=== PATIENT | female | born 2000 | race Caucasian/White ===

== ENCOUNTER 2023-05-31 19:58 | Emergency (ER) | payer BC, SELFPAY ==
--- NOTE | ~2023-05-31 | XR_ITS ---
EXAMINATION: XR chest 2V Exam Date/Time: 05/31/2023 22:30 [employer]ER HISTORY: CP;[id number];VOMITED 6 TIMES THIS EVENING Comparison: None. RESULT: Lines, tubes, and devices: None. Lungs and pleura: Clear. Cardiomediastinal silhouette: Normal. Other: No acute osseous or upper abdominal finding. IMPRESSION: No acute cardiopulmonary process. Reviewed, dictated and finalized at location K. [employer]ANGER
--- NOTE | ~2023-05-31 | CT_ITS ---
EXAMINATION: CT abdomen pelvis w con DATE: 05/31/2023 22:47 INDICATION: RLQ pain TECHNIQUE: Computed tomography (CT) of the abdomen and pelvis was performed with 100 mL Omnipaque-350 intravenous contrast. Automated exposure control and iterative reconstruction technique were employe d. The dose-length product was 375.51 mGy-cm. COMPARISON: None. FINDINGS: Lower thorax: Unremarkable Liver: Normal. Biliary/Gallbladder: Gallbladder is normal. No bile duct dilation. Pancreas: No mass or duct dilation. Spleen: Normal. Adrenals:No mass. Kidneys: No suspicious mass, obstructing stone, or hydronephrosis. GI tract: Mild distal esophageal and gastric wall edema. No small or large bowel dilation. Normal aminata endix. Mesentery/Peritoneum: No ascites, mass, or free air. Retroperitoneum: No mass. Pelvis: Mild bladder wall thickening in a partially distended urinary bladder. Normal uterus and ovar ies. Soft Tissues: Soft tissues and body wall unremarkable. Bones: No acute osseous finding. IMPRESSION: Mild esophagitis/gastritis. Cystitis versus bladder wall thickening from incomplete distention, correlate with urinalysis. Reviewed, dictated and finalized at location K. [employer] IMPRESSION: Mild esophagitis/gastritis. Cystitis versus bladder wall thickening from incomplete distention, correlate w ith urinalysis.
[2023-05-31 20:07] VITALS: BP 115/76; PULSE 101; RESP 16; TEMP 36.4; O2SAT 99
[2023-05-31 20:27] LABS: Basophils Percent Auto 0.3 % (0.2-1.2); Eosinophils Percent Auto 0.1 % (0-4.4); Hematocrit 47.1 % (37.0-47.0); Hemoglobin 15.7 g/dL (12.0-15.0); Immature Granulocyte Absolute 0.02 K/mm3 (0.00-0.031); Immature Granulocyte Percent A 0.2 % (0-0.5); Lymphocytes Absolute Auto 0.63 K/mm3 (0.9-3.2); Lymphocytes Percent Auto 5.3 % (18.3-44.2); Mean Corpuscular HGB Conc 33.3 g/dl (32-36); Mean Corpuscular Hemoglobin 31.7 pg (26-34); Mean Platelet Volume 10.9 fl (7.4-10.4); Monocytes Absolute Auto 0.7 K/mm3 (0.1-0.6); Monocytes Percent Auto 5.8 % (2.6-8.5); Neutrophils Absolute Auto 10.4 K/mm3 (1.3-6.7); Neutrophils Percent Auto 88.3 % (45.5-73.1); Platelet Count Result 255 k/mm3 (150-375); Red Blood Count 4.96 M/mm3 (4.2-5.4); Red Cell Distribution Width 11.8 % (11.5-14.5); White Blood Count 11.8 K/mm3 (4.5-10.0)
[2023-05-31 20:39] LABS: Alanine Aminotransferase 27 U/L (6-35); Albumin Level 4.2 g/dL (3.5-5.1); Alkaline Phosphatase 71 U/L (38-126); Anion Gap 13 mmol/L (8-16); Aspartate Amino Transferase 31 U/L (14-36); Bilirubin,Total 0.9 mg/dL (0.2-1.3); Blood Urea Nitrogen 14 mg/dL (7-17); Carbon Dioxide 17 mmol/L (22-30); Chloride 107 mmol/L (98-107); Estimated CRCL calculation 127 ml/min; Estimated Glomerular Filt Rate > 60; Glucose 104 mg/dL (65-110); Lipase 81 U/L (23-300); Potassium 3.7 mmol/L (3.4-5.0); Sodium 137 mmol/L (137-145)
[2023-05-31 21:01] LABS: Appearance Urine Clear (Clear); Bacteria Urine None Seen /hpf; Bilirubin Urine Negative (Negative); Blood Urine Negative (Negative); Color Urine Dark Yellow (Yellow); Glucose Urine UA Negative (Negative); Ketones Urine 3+ mg/dL (Negative); Leukocyte Esterase Ur Negative LEU/UL (Negative); Need Manual Microscopic Reviewed; Nitrate Urine Negative (Negative); Non Pathogenic Casts 0-2; Protein Urine Trace mg/dL (Negative); Specific Grav Ur 1.032 (1.001-1.035); Squamous Epithelial Cell Urine None seen /hpf (Few); WBC Urine 0-5 /hpf; pH Urine 5.5 (5.0-9.0)
[2023-05-31 21:02] LABS: Add Urine Microscopic? YES
[2023-05-31 22:18] VITALS: BP 101/61; PULSE 89; RESP 15; O2SAT 100
[2023-05-31] MEDS: SODIUM CHLORIDE 0.9% IV 1,000 ML 999 ML IV CONT (22:21)
--- NOTE | 2023-05-31 22:26 | ECG_ITS ---
Measurements Intervals [place] Rate: 88 P: 66 VA: 171 QRS: 91 QRSD: 75 T: 48 QT: 377 QTc: 458 Interpretive Statements SINUS RHYTHM RIGHT AXIS DEVIATION BORDERLINE ECG NO PREVIOUS ECG AVAILABLE FOR COMPARISON Electronically Signed On 06-01-2023 6:47:46 [employer] by Boris Currie D.O.
--- NOTE | 2023-05-31 22:26 | ED.ABDPAIN ---
HPI - Abdominal Pain General Chief Complaint: Abdominal Pain Stated Complaint: abd pain Time Seen by Provider: 05/31/23 22:07 Source: patient Mode of arrival: ambulatory Limitations: no limitations History of Present Illness HPI narrative: This is a 23 year old female that presents to the ER for right sided abdominal pain. Ongoing since yesterday. Associated with nausea and vomiting. Report today in her clinicals she started to feel very lightheaded and nauseas, like she was going to pass out. The pain radiated in her chest. Denies fever, shortness of breath, or dysuria. Related Data Allergies Allergy/AdvReac Type Severity Reaction Status Date / Time No Known Allergies Allergy Verified 05/31/23 19:59 Review of Systems Review of Systems: CONSTITUTIONAL: Denies fever CARDIOVASCULAR: Reports chest pain RESPIRATORY: Denies dyspnea. GASTROINTESTINAL: Reports abdominal pain, nausea, vomiting GENITOURINARY: Denies dysuria or hematuria. All systems reviewed & are unremarkable except as noted in HPI and below PMFSH Past Medical History Medical History (Updated 06/01/23 @ 00:34 by Darlene Garner PA-C) History of anxiety Social History Social History (Updated 06/01/23 @ 00:34 by Darlene Garner PA-C) Substance use: never Exam Narrative: GENERAL: Well-appearing, well-nourished, and in no acute distress. HEAD: Normocephalic, atraumatic. EYES: EOMI. CHEST: Clear to auscultation. No respiratory distress. No wheezes rales or rhonchi HEART: Regular rate and rhythm. No murmur heard. Normal peripheral pulses. ABDOMEN: Soft, nondistended, normal active bowel sounds. Mild tenderness to palpation throughout the right side of the abdomen, without guarding EXTREMITIES: Normal range of motion. No edema. SKIN: Warm, dry, no rash. NEURO: No focal deficits. Alert and oriented x3. PSYCH: Normal mood and affect Course Course Emergency Course: Patient updated on her workup and agrees with plan of care Vital Signs Vital signs: Vital Signs Temperature 97.6 F 05/31/23 20:07 Pulse Rate 101 H 05/31/23 20:07 Respiratory Rate 16 05/31/23 20:07 Blood Pressure 115/76 05/31/23 20:07 Pulse Oximetry 99 05/31/23 20:07 Oxygen Delivery Room Air 05/31/23 20:07 Temperature 97.6 F 05/31/23 20:07 Pulse Rate 89 05/31/23 22:18 Respiratory Rate 15 05/31/23 22:18 Blood Pressure 101/61 05/31/23 22:18 Pulse Oximetry 100 05/31/23 22:18 Oxygen Delivery Room Air 05/31/23 20:07 MDM - Abdominal Pain MDM Narrative Medical decision making narrative: Patient presents to the emergency department for abdominal pain, nausea and vomiting. Reporting radiation into her chest. Ongoing since yesterday. She is afebrile and nontoxic appearing. Mildly tachycardic upon arrival, this normalized with IV fluid administration. CBC with mild leukocytosis to 11.8. Also shows hemoconcentration. Metabolic panel without concerning findings. UA without evidence of infection. Does show evidence of dehydration. Chest x-ray without acute cardiopulmonary abnormality. EKG without concerning changes and baseline troponin is negative. test is negative. CT abdomen pelvis shows mild esophagitis/gastritis. Possible cystitis, although patient's urine is not concerning for infection. Patient was updated on her workup and agrees with plan of care. Will be started on Pepcid and instructed to follow up with primary provider. She was given warnings to return to the ER Differential Diagnosis Differential diagnosis: Likely acute appendicitis, calculus of kidney, constipation, diverticulitis and other (esophagitis, gastritis) Lab Data Attestation: I reviewed the patient's lab results. 05/31/23 20:21 05/31/23 20:21 Labs: Lab Results 05/31/23 05/31/23 Range/Units 20:21 20:29 WBC 11.8 H (4.5-10.0) K/mm3 RBC 4.96 (4.2-5.4) M/mm3 Hgb 15.7 H (12.0-15.0) g/dL Hct 47.1 H (3
[2023-05-31 22:27] LABS: Pregnancy On Board Control Positive; Urine Pregnancy Test Negative
[2023-05-31] MEDS: ONDANSETRON INJ 4 MG/2 ML VIAL IV PUSH (22:49)
[2023-05-31] MEDS: MORPHINE SULFATE (*CRX) 4 MG/ML INJ IV PUSH (22:49)
[2023-05-31 22:55] LABS: Troponin I < 0.012 ng/mL (0.000-0.034)
[2023-05-31] MEDS: FAMOTIDINE 20 MG/2 ML VIAL IV PUSH (23:57)
[2023-06-01 01:15] VITALS: BP 110/71; PULSE 82; RESP 12; TEMP 37.2; O2SAT 100
== END 2023-06-01 01:36 | disposition home or self-care (01) ==
PROVIDERS: Emergency Medicine; Emergency Provider Physician Assistant; PCP Nurse Practitioner Obstetrics & Gynecology
DX: K20.90 Esophagitis, unspecified without bleeding (principal); E86.0 Dehydration; R93.41 Abnormal radiologic findings on diagnostic imaging of renal pelvis, ureter, or bladder; R94.31 Abnormal electrocardiogram [ECG] [EKG]
CPT/HCPCS: 36415; 71046; 74177; 80053; 81001; 81025; 83690; 84484; 85025; 93005; 96361; 96374; 96375; 99284; J2270; J2405; J7030; Q9967